=== PATIENT | male | born 1965 | race Caucasian/White ===

== ENCOUNTER 2025-08-20 13:21 | Outpatient (REF) | payer MEDICARE, MEDICAID, SELFPAY ==
[2025-08-20 16:09] LABS: Folate 10.7 ng/mL (> or = 4.0); Vitamin B12 347 pg/mL (200-900)
[2025-08-21 05:28] LABS: Lyme Abs Screen <0.90 index
[2025-08-21 07:58] LABS: Syphilis Screen Nonreactive (Nonreactive)
== END 2025-08-20 13:22 | disposition home or self-care (01) ==
LOC: HO.LAB 13:21
PROVIDERS: PCP Internal Medicine; Visit Provider Psychiatry & Neurology Neurology
DX: E11.42 Type 2 diabetes mellitus with diabetic polyneuropathy (principal); M15.9 Polyosteoarthritis, unspecified; M47.12 Other spondylosis with myelopathy, cervical region; Z01.84 Encounter for antibody response examination
CPT/HCPCS: 36415; 82607; 82746; 86617; 86618; 86780

== ENCOUNTER 2025-08-20 13:21 | Outpatient (AMB) | payer OTHER, MEDICAID, SELFPAY ==
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
--- OUTSIDE RECORDS SUMMARY | 2025-08-20 16:28 | XMS_ITS ---
[facility] Organization Unknown Care Team Organization Name Specialty Phone Email Start Date End Da te [facility] Austyn Masters [facility] 07/21/202307/02 [facility] Pa[facility] 01/19/2023 07/02/2024 [facility] Daly Madison [facility] 09/21/2022 07/02/2024
--- OUTSIDE RECORDS SUMMARY | 2025-08-20 16:28 | XMS_ITS | Encounter Summary ---
Author Organization [facility] Address [address] [place] [address] Care Team Providers Care [employer] Name Role Phone Jacques Guevara MD Primary Care Provider [phone] Encounter Details Date Type Department Care Team (Late st Contact Info) Description 08/14/2025 Telephone Adult Medicine [address] [phone] Jacques Guevara MD [address] [place] [phone] Social History Tobacco Use Types Packs/Day Years Used Date Smoking Tobacco: Former Cigarettes 0.3 20 0 11/14/1980 - 11/14/2000 Smokeless Tobacco: Never Alcohol Use Standard Drinks/Week Comments No 0 (1 standard drink = 0.6 oz pur e alcohol) Interpersonal Safety Answer Date Record ed Physical Abuse Unrecognized value 04/02/2025 Verbal Abuse Unrecognized value 04/02/2025 Sex and Gender Information Value Date Recorded Sex Assigned at Male 01/11/2025 2:17 PM EST Legal Sex Male 9:54 AM EST Gender Identity Male 01/11/2025 2:17 PM EST Sexual Orientation Straight 01/14/2025 9: 46 AM EST documented as of this encounter Progress Notes * Lesa Somers - 08/15/2025 11:41 AM EDT Richelle is calling from [employer] again. She states she has been sending a request for the patients last office notes since May. She Resent fax yesterday 08/14/25 around 11:30; States this is holding up Patient Care. Please advise. * Bibi Mcclendon - 08/14/2025 11:54 AM EDT Richelle is calling from [employer]. She states she has been sending a request for the patients lastoffice notes since May. Please advise. documented in this encounter Plan of Treatment Upcoming Encounters Date Type Department Care Team (Late st Contact Info) Description 09/04/2025 10:45 AM EDT Consult Orthopedic Surgery - [place] [id number] [phone] Raimundo Jimenez, SUZANNE [address] [address] 10/25/2025 9:40 AM EST Office Visit Endocrinology - [address] [phone] Deja Caro PA [address] [place] [address] 11/05/2025 11:45 AM EST Office Visit Adult Medicine [place] - [address] [phone] Jacques Guevara MD [address] [place] [address] documented as of this encounter Visit Diagnoses Not on filedocumented in this encounter Additional Health Concerns Assessment Noted Time PHQ-9 Depression Total Score: 0 07/24/20 11:00 AM EDT documented as of this encounter Care Teams [employer] Relationship Specialty Start Date End Date Jacques Guevara MD [address] [place] [address] PCP - General Internal Medicine 06/02/15 documented as of this encounter
--- OUTSIDE RECORDS SUMMARY | 2025-08-20 16:28 | XMS_ITS | Clinical Summary ---
Author Organization [address] Address [address] [place] [phone] Phone Care Team Providers Care Dope Firer Name Role Phone Jacques Guevara MD Primary Care Provider [phone] Allergies Active Allergy Reactions Criticality Noted Date Comments Penicillin V Potassium Rash 09/28/2005 Medications acetaminophen (TYLENOL) 500 mg tablet Take 1 tablet (500 mg total) by mouth if needed for headaches. Patient buys OTC Active losartan (COZAAR) 50 mg tablet TAKE 1 TABLET BY MOUTH EVERY DAY 30 tablet 5 11/28/19 25 Active metFORMIN XR (GLUCOPHAGE-X R) 500 mg 24 hr tabletIndicat ions:Type 2 diabetes mellitus with hyperglycemia , with long-term current use of insulin ([facility] V24, [facility] V28) TAKE 1 TABLET BY MOUTH THREE TIMES A DAY 270 tablet 1 04/19/20 25 Active sertraline (ZOLOFT) 25 mg tablet TAKE 1 TABLET BY MOUTH EVERY DAY 90 tablet 1 05/21/20 25 Active atorvastatin (LIPITOR) 20 mg tablet TAKE 1 TABLET BY MOUTH EVERY DAY 90 tablet 1 05/21/20 25 Active hydroCHLOROth iazide (HYDRODIURIL) 25 mg tablet TAKE 1 TABLET BY MOUTH EVERY DAY 90 tablet 1 05/21/20 25 Active Jardiance 25 mg tabletIndicat ions:Type 2 diabetes mellitus with hyperglycemia , with long-term current use of insulin ([facility] V24, [facility] V28) TAKE 1 TABLET BY MOUTH EVERY DAY 90 tablet 1 05/21/20 25 Active semaglutide (OZEMPIC) 1 mg/dose (4 mg/3 mL) injection penIndication s:Type 2 diabetes mellitus with hyperglycemia , without long-term current use of insulin ([facility] V24, [facility] V28) Inject 1 mg under the skin every 7 (seven) days. 3 mL 5 06/18/20 25 Active blood-glucose meter miscIndicatio ns:Type 2 diabetes mellitus with hyperglycemia , with long-term current use of insulin ([facility] V24, [facility] V28) Use daily or as directed for monitoring of diabetes. 1 each 07/24/20 25 Active glucose blood test stripIndicati ons:Type 2 diabetes mellitus with hyperglycemia , with long-term current use of insulin ([facility] V24, [facility] V28) Check blood glucose daily 100 strip 5 07/24/20 Active lancets lancetsIndica tions:Type 2 diabetes mellitus with hyperglycemia , with long-term current use of insulin ([facility] V24, [facility] V28) Check blood sugar 1-2 times a day or as directed. 200 each 6 07/24/20 25 Active blood sugar diagnostic (OneTouch Verio test strips) test strip USE TO TEST BLOOD SUGAR ONCE DAILY 100 strip 1 01/31/20 25 025 Discontinued lancets (OneTouch Delica Plus Lancet) 33 gauge USE TO TEST BLOOD SUGAR DAILY 100 each 3 03/26/20 25 025 Discontinued bisacodyL (DULCOLAX) 5 mg EC tablet Take 2 tablets by mouth right before beginning bowel prep. See instructions provided by the office 2 tablet 03/25/20 25 025 Discontinued(T herapy completed) blood sugar diagnostic (OneTouch Verio test strips) test strip USE TO TEST BLOOD SUGAR ONCE DAILY 100 strip 3 07/22/20 25 025 Discontinued Active Problems Problem Noted Date Diagnosed Date Class 1 obesity with serious comorbidity and body mass index (BMI) of 34.0 to 34.9 in adult 08/24/2024 Assessment & Plan (11/25/2024 11:00 PM EST): Diet Recommendation: Patient is to increase protein intake (120 g/day) to minimize muscle loss side effects related to GLP-1's. Patient is maintain a low carb diet to optimize blood sugar levels. Patient is counseled about low calorie diet (avoid sweet drinks/snacks, and replace red meat with chicken and fish and increase salad intake). I also recommend patient start daily Metamucil to minimize the constipation that is related to GLP-1's medication and also help with fiber intake and blood sugar control. Activity/Exercise Recommendation: Patient is to attempt exercise daily or at least 3 times a week for 30 min. If able to set aside 2 days of of the week for strength exercise to minimize the side effects of muscle loss related to GLP-1's. Orders: Basic metabolic panel; Future Type 2 diabetes mellitus wit h hyperglycemia, with long-term current use of insulin ([facility] V24, [facility] V28) 08/24/2024 Abnormal chest x-ray 03/02/2023 Acne rosacea 11/10/2020 Chronic kidney disease, stag e 3, mod decreased GFR ([facility] V24, [facility] V28) 11/02/2016 Assessment & Plan (11/25/2024 11:00 PM EST): BMP order to evaluated renal function Orders: Basic metabolic panel; Future Plantar fasciitis 10/28/2015 Bilateral low back pain without sciatica 015 Diabetes mellitus type 2, co ntrolled, without complications ([facility] V24, [facility] V28) 04/29/2015 Assessment & Plan (11/25/2024 11:00 PM EST): Patient is to continue Ozempic 0.25 mg weekly, metformin 500 mg TID and Jardiance 25 mg daily. Checking Your Blood Sugars: Please check your sugars at the following times of day: before breakfast. Write your fingerstick blood sugars down on a log sheet or record book. Bring them to your appointment Educated patient on pre and post prandial blood sugar goals of <120 and <170 respectively, as well as an A1c goal of <7% and goal FBG of 90-130. Educated patient on complications associated with uncontrolled diabetes. These include but are not limited to an increased risk of cardiovascular disease, retinopathy, neuropathy, renal disease, increased risk of infections with open wounds and amputations. Diet Recommendation: Patient is to increase protein intake (120 g/day) to minimize muscle loss side effects related to GLP-1's. Patient is maintain a low carb diet to optimize blood sugar levels. Patient is counseled about low calorie diet (avoid sweet drinks/snacks, and replace red meat with chicken and fish and increase salad intake). I also recommend patient start daily Metamucil to minimize the constipation that is related to GLP-1's medication and also help with fiber intake and blood sugar control. Activity/Exercise Recommendation: Patient is to attempt exercise daily or at least 3 times a week for 30 min. If able to set aside 2 days of of the week for strength exercise to minimize the side effects of muscle loss related to GLP-1's. Patient is to A1c in 6 months When to Call your Healthcare Provider If your blood sugar falls below 70 and you do not know why or you become unconscious If you are sick and unable to take liquids because or nausea or vomiting If you have a fever over 101 If your blood sugar is 300 or higher on greater than 3 separate occasions during the same week If you are just unsure what to do Your Action Plan Check blood glucose as directed and write down all results. Review blood pressure medications Make appointment to see your eye doctor Check feet for sores every day Continue to work on weight loss with a goal of losing 2-4 pounds per month Avoid walking in bare or stocking feet due to the numbness in your feet Increase physical activity difficulty getting to your appointments or difficulty understanding your care plan Please get your pneumonia shot Please get your yearly flu shot Orders: Basic metabolic panel; Future Biceps tendonitis 04/23/2015 Abnormal finding on MRI of brain 09/20/2011 Anxiety 08/23/2011 Insomnia 08/23/2011 Generalized headaches 08/23/2011 Degenerative arthritis of cervical spine 010 Hypertension 09/28/2005 Assessment & Plan (11/25/2024 11:00 PM EST): The goal of therapy is for systolic BP to be <140, diastolic BP <90. Valentín is not control. Patient is to Continue Losartan 50 mg and Hydrochlorothiazide 25 mg daily. Review medication, side effects ans potential future medication changes. Patient is advised to check BP at home and maintain a BP log. He is to call the office if blood pressure more than 140/90, more than a couple of times. Patient is recommended lifestyle changes including 2 g sodium/Dash Diet and regular exercise as tolerated. Orders: Basic metabolic panel; Future Hyperlipidemia 09/28/2005 Assessment & Plan (11/25/2024 11:00 PM EST): Patient is to continue statin Orders: Basic metabolic panel; Future Encounters Date Type Department Care Team Description 08/20/2025 Telephone Adult Medicine [address] [phone] [place] 08/14/2025 Telephone Adult Medicine [address] [phone] Jacques Guevara MD 07/24/2025 11:00 AM EDT Office Visit [address] [phone] Ashley Quick NP Type 2 diabetes mellitus with hyperglycemia, with long-term current use of insulin ([facility] V24, [facility] V28) (Primary Dx); Primary hypertension; Mixed hyperlipidemia; Gastroesophageal reflux disease without esophagitis; Encounter for diabetic foot exam ([facility] V24, [facility] V28) 06/18/2025 9:45 AM EDT Office Visit [address] [phone] Monserrat Love PA Type 2 diabetes mellitus with hyperglycemia, without long-term current use of insulin ([facility] V24, [facility] V28) (Primary Dx); Stage 3a chronic kidney disease ([facility] V24, [facility] V28); Primary hypertension; Mixed hyperlipidemia 05/23/2025 11:00 AM EDT Office Visit Adult [address] [phone] Jacques Guevara MD Poorly controlled diabetes mellitus ([facility] V24, [facility] V28) (Primary Dx); Class 1 obesity with serious comorbidity and body mass index (BMI) of 34.0 to 34.9 in adult, unspecified obesity type; Loss of balance; Abnormal finding on MRI of brain; Mixed hyperlipidemia; Primary hypertension from Last 3 Months Immunizations Immunization Administration Dates Next Due Influenza Quadravalent, MDCK , 0.5ml, preservative free (Flucelvax) 6mo and older 11/10/2020,09/19/2019 Pneumococcal polysaccharide 23 valent (Pneumovax 23) 2yo and older 10/28/2015 Td Tetanus diptheria (Tdvax) 7yo and older 07/15 Tdap Tetanus diptheria acell ular pertussis (Boostrix; Adacel) 7yo and older 08/07/2014 Surgical History Surgery Date Site/Laterality Comments HAND SURGERY PROCEDURE: HISTORICAL HAND SURGERY FOOT SURGERY PROCEDURE: HISTORICAL FOOT SURGERY Medical History Medical History Date Comments Anxiety DX:Anxiety Generalized headaches DX:General ized headaches HTN (hypertension) DX:HTN (hyper tension) Insomnia DX:Insomnia Cervical disc disorder DX:Cervic al disc disorder Diabetes mellitus type 2, co ntrolled, without complications (CMS/HCC V24, CMS/HCC V28) 04/29/2015 DX:Diabetes mellitus type 2, controlled, without complications ([facility]) Family History Medical History Relation Name Comments No Known Problems Brother Heart attack Father dec at 44 [place] Heart attack Maternal Grandfather heavy s moker Other: cancer - not sure what kind Maternal Grandmothe r 50s Other: Other Mother heart valve pro blem 50s No Known Problems Paternal Grandmother Relation Name Status Comments Brother Alive Father (Age 44) sudden vlad th Maternal Grandfather Maternal Grandmother Mother Alive htn Paternal Grandmother Social History Tobacco Use Types Packs/Day Years Used Date Smoking Tobacco: Former Cigarettes 0.3 20 0 11/14/1980 - 11/14/2000 Smokeless Tobacco: Never Tobacco Cessation:Counseling Given: Not Answered Alcohol Use Standard Drinks/Week Comments No 0 [...] Orientation Straight 01/14/2025 9: 46 AM EST Obstetrics History Last Filed Vital Signs Vital Sign Reading Time Taken Comments Blood Pressure 122/74 07/24/2025 11:36 AM EDT Pulse 96 07/24/2025 10:45 AM EDT Temperature 36.3 C (97.4 F) 07/24/2025 10:45 AM EDT Respiratory Rate 18 07/24/2025 10:45 AM EDT Oxygen Saturation 97% 07/24/2025 10:45 AM EDT Inhaled Oxygen Concentration - - Weight 98.4 kg (217 lb) 07/24/2025 10:45 AM EDT Height 182.9 cm (6') 07/24/2025 10:45 AM EDT Body Mass Index 29.43 07/24/2025 10:45 AM EDT Plan of Treatment Upcoming Encounters Date Type Department Care Team (Late st Contact Info) Description 09/04/2025 10:45 AM EDT Consult Orthopedic Surgery - [place] [id number] [phone] Raimundo Jimenez, DPAlok [address] [address] 10/25/2025 9:40 AM EST Office Visit Endocrinology [address] [phone] Deja Caro PA [address] [place] [address] 11/05/2025 11:45 AM EST Office Visit Adult Medicine [address] [phone] Jacques Guevara MD [address] [place] [address] Health Maintenance Due Date Last Done Comments Medicare Annual Wellness Visit 10/23/2022 Social Influencers of Health Screening 10/23/2022 Diabetes: Blood Sugar Control Test (HGBA1C) 01/16/2026 07/19/2025, 05/13/2025, 11/13/2024, Additional history exists Diabetes: Annual GFR (Glomerular Filtration Rate) 05/13/2026 05/13/2025, 11/13/2024, 07/27/2024, Additional history exists Hypertension/CHF/CAD Annual BMP Blood Test 05/13/2026 05/13/2025, 11/13/2024, 07/27/2024, Additional history exists Diabetes: Annual Retina Eye Exam 05/30/2026 05/30/2025, 05/28/2024 Diabetes: Annual Urine Albumin-Creatinine Ratio (uACR) 07/19/2026 07/19/2025, 05/03/2024 Diabetes: Annual Foot Exam 07/24/202607/24, 07/24/2025, 07/24/2025, Additional history exists Cholesterol Screening (Lipid Panel) 05/13/2030 05/13/2025, 05/02/2024, 05/02/2024 RSV Immunization Adult Patients (1 - 1-dose 75+ series) 2041 DTaP,Tdap,and Td Vaccines Discontinued 08/07/2014, 11/2004 Hepatitis C Screening Completed 08/11/2014 Pneumococcal Vaccine: 50+ Years Discontinued 10/28/2015 Influenza Vaccine Discontinued 11/10/2020, 09/19/2019 Colorectal Cancer Screening: Colonoscopy Discontinued 04/02/2025 Depression Screening Completed 07/24/2025, 08/02/20 COVID-19 Vaccine Discontinued Colorectal Cancer Screening: Stool Based Tests (FOBT/FIT) Discontinued HIB Vaccines Aged Out No longer eligi ble based on patient's age to complete this topic HIV Screening Discontinued HPV Vaccines Aged Out No longer eligi ble based on patient's age to complete this topic Hepatitis A Vaccines Aged Out No long er eligible based on patient's age to complete this topic Hepatitis B Vaccines Discontinued IPV Vaccines Aged Out No longer eligi ble based on patient's age to complete this topic MMR Vaccines Aged Out No longer eligi ble based on patient's age to complete this topic Meningococcal ACWY Vaccine Aged Out N o longer eligible based on patient's age to complete this topic Meningococcal B Vaccine Aged Out No l onger eligible based on patient's age to complete this topic RSV Immunization Patients Under 20 months Aged Out No longer eligible based on patient's age to complete this topic Varicella Vaccines Aged Out No longer eligible based on patient's age to complete this topic Zoster Vaccines Discontinued Procedures Procedure Name Priority Date/Time Associated Diagnosis Comments POC GLUCOSE Routine 07/24/2025 11:02 AM EDT Type 2 diabetes mellitus with hyperglycemia, with long-term current use of insulin ([facility] V24, [facility] V28) HEMOGLOBIN A1C Routine 07/19/2025 8:44 AM EDT Poorly controlled diabetes mellitus ([facility] V24, [facility] V28) MICROALBUMIN CREATININE URINE RATIO Routine 07/19/2025 8:44 AM EDT Controlled type 2 diabetes mellitus without complication, without long-term current use of insulin ([facility] V24, [facility] V28) Type 2 diabetes mellitus with hyperglycemia, with long-term current use of insulin ([facility] V24, [facility] V28) POC GLUCOSE Routine 06/18/2025 10:00 AM EDT Type 2 diabetes mellitus with hyperglycemia, without long-term current use of insulin ([facility] V24, [facility] V28) BASIC METABOLIC PANEL Routine 05/13/2025 9:08 AM EDT Controlled type 2 diabetes mellitus without complication, without long-term current use of insulin ([facility] V24, [facility] V28) Primary hypertension Stage 3a chronic kidney disease ([facility] V24, [facility] V28) Class 1 obesity with serious comorbidity and body mass index (BMI) of 34.0 to 34.9 in adult, unspecified obesity type Mixed hyperlipidemia Encounter for screening for cardiovascular disorders LIPID PANEL WITH REFLEX TO DIRECT LDL Routine 05/13/2025 9:08 AM EDT Encounter for screening for cardiovascular disorders COLONOSCOPY Routine 04/02/2025 11:18 AM EDT Encounter for screening for malignant neoplasm of colon DEPRESSION SCREENING Routine 08/02/2024 DIABETES EYE EXAM Routine 05/28/2024 HEPATITIS C SCREENING Routine 08/11/2014 from Last 3 Months or Most Recently Relevant to Health Maintenance Results * POC glucose manually resulted (07/24/2025 11:02 AM EDT) Only the most recent of2 resultswithin the time period is included. Glucose POC 179 mg/dL Blood Capillary blood specimen / Unknown 07/24/2025 11:02 AM EDT Ashley Quick NP POINT OF CARE TEST ENTER/DAVID T ORDERABLES Final Result * Microalbumin creatinine urine ratio (07/19/2025 8:44 AM EDT) Creatinine, Urine 106.0 mg/dL LAB CHEMISTRY METHOD 07/19/2025 9:13 PM EDT [facility] Microalb, Ur 8.7 0.0 - 29.0 mg/L LAB CHEMISTRY METHOD 07/19/2025 9:13 PM EDT [facility] Microalb/Creat Ratio 8 <30 mg/g creat LAB CHEMISTRY METHOD 07/19/2025 9:13 PM EDT [facility] Urine Urine specimen obtained by clean catch procedure / Unknown Non-blood Collection / Unknown 07/19/2025 8:44 AM EDT 07/19/2025 8:44 AM EDT Jacques Guevara MD LAB URINE ORDERABLES Final Resul t [facility] [address] [place] [address], * (ABNORMAL) Hemoglobin A1c (07/19/2025 8:44 AM EDT) Hemoglobin A1C 8.4(H) <6.5 % LAB CHEMISTRY METHOD 07/19/2025 12:24 PM EDT [facility] Mean Bld Glu Estim. 194 mg/dL LAB CHEMISTRY METHOD 07/19/2025 12:24 PM EDT [facility] Blood Venous blood specimen / Unknown Venipuncture / Unknown 07/19/2025 8:44 AM EDT 07/19/2025 8:44 AM EDT us Jacques Guevara MD LAB BLOOD ORDERABLES Final Resul t [facility] [address] [place] [address], [place] [phone] * (ABNORMAL) Lipid panel with reflex to direct LDL (05/13/2025 9:08 AM EDT) [facility] Cholesterol 133 0 - 200 mg/dL LAB CHEMISTRY METHOD 05/13/2025 1:38 PM EDT [facility] Triglycerides 153(H) 0 - 150 mg/dL LAB CHEMISTRY METHOD 05/13/2025 1:38 PM EDT [facility] HDL 32(L) >=40 mg/dL LAB CHEMISTRY METHOD 05/13/2025 1:38 PM EDT [facility] LDL Calculated 70 0 - 100 mg/dL LAB CHEMISTRY METHOD 05/13/2025 1:38 PM EDT [facility] VLDL Cholesterol Nish 30.6 mg/dL LAB CHEMISTRY METHOD 05/13/2025 1:38 PM EDT [facility] Non HDL Chol. (LDL+VLDL) 101 <145 mg/dL LAB CHEMISTRY METHOD 05/13/2025 1:38 PM EDT [facility] Chol/HDL Ratio 4.2 0.0 - 4.4 LAB CHEMISTRY METHOD 05/13/2025 1:38 PM EDT [facility] Blood Venous blood specimen / Unknown Venipuncture / Unknown 05/13/2025 9:08 AM EDT 05/13/2025 9:08 AM EDT us Ashley Quick NP LAB BLOOD ORDERABLES Final R esult [facility] [address] [place] [address], * (ABNORMAL) Basic metabolic panel (05/13/2025 9:08 AM EDT) Sodium 138 133 - 145 mmol/L LAB CHEMISTRY METHOD 05/13/2025 1:38 PM [facility] Potassium 3.7 3.5 - 5.5 mmol/L LAB CHEMISTRY METHOD 05/13/2025 1:38 PM [facility] Chloride 102 96 - 110 mmol/L LAB CHEMISTRY METHOD 05/13/2025 1:38 PM [facility] CO2 27 21 - 32 mmol/L LAB CHEMISTRY METHOD 05/13/2025 1:38 PM [facility] Anion Gap 9 3 - 11 LAB CHEMISTRY METHOD 05/13/2025 1:38 PM [facility] Glucose 192(H) 70 - 100 mg/dL LAB CHEMISTRY METHOD 05/13/2025 1:38 PM [facility] BUN 18 5 - 25 mg/dL LAB CHEMISTRY METHOD 05/13/2025 1:38 PM [facility] Creatinine 1.16 0.70 - 1.30 mg/dL LAB CHEMISTRY METHOD 05/13/2025 1:38 PM [facility] eGFR 73 >=60 mL/min/1. 73m2 LAB CHEMISTRY METHOD 05/13/2025 1:38 PM [facility] Comment:Calculation based on the Chronic Kidney Disease Epidemiology Collaboration (CKD-EPI) equation refit without adjustment for race. BUN/Creatinine Ratio 15.5 LAB CHEMISTRY METHOD 05/13/2025 1:38 PM [facility] Calcium 9.3 8.5 - 10.5 mg/dL LAB CHEMISTRY METHOD 05/13/2025 1:38 PM [facility] Blood Venous blood specimen / Unknown Venipuncture / Unknown 05/13/2025 9:08 AM EDT 05/13/2025 9:08 AM EDT us Ashley uQick [employer] LAB BLOOD ORDERABLES Final R esult [facility] [address] [place] [address], [place] [phone] * COLONOSCOPY Anesthesia - MAC; [facility] ENDOSCOPY (04/02/2025 11:18 AM EDT) Anatomical Region Laterality Modality Other 04/02/2025 11:0 2 AM EDT Impressions 04/02/2025 11:21 AM EDT - Preparation of the colon was fair. - Stool in the entire examined colon. - No specimens collected. Recommendation: - Repeat colonoscopy in 1 year for screening purposes and because the bowel preparation was suboptimal. Narrative 04/02/2025 11:21 AM EDT [facility] GI Patient Name: Valentín Vilchis Procedure Date: 04/02/2025 11:02 AM Date of : 1965 Age: 60 Room: ROOM 14 Gender: Male Note Status: Finalized Attending MD: Jonny Dick MD, Procedure Date No Time: 04/02/2025 Procedure: Colonoscopy Indications: Screening for colorectal malignant neoplasm Providers: Jonny Dick MD Referring MD: Jonny Dick MD Medicines: Propofol per Anesthesia Complications: No immediate complications. Estimated Blood Loss: Estimated blood loss: none. Procedure: Pre-Anesthesia Assessment: - After reviewing the risks and benefits, the patient was deemed in satisfactory condition to undergo the procedure. - ASA Grade Assessment: II - A patient with mild systemic disease. After I obtained informed consent, the scope was passed under direct vision. Throughout the procedure, the patient's blood pressure, pulse, and oxygen saturations were monitored continuously.The Colonoscope was introduced through the anus and advanced to the cecum, identified by appendiceal orifice and ileocecal valve. The colonoscopy was performed without difficulty. The patient tolerated the procedure well. The quality of the bowel preparation was fair. Findings: The perianal and digital rectal examinations were normal. A moderate amount of semi-liquid stool was found in the entire colon, interfering with visualization. Procedure Code(s): --- Professional --- G0121, Colorectal cancer screening; colonoscopy on individual not meeting criteria for high risk Diagnosis Code(s): --- Professional --- Z12.11, Encounter for screening for malignant neoplasm of colon CPT copyright 2020 [employer]. All rights reserved. The codes documented in this report are preliminary and upon site manager review may be revised to meet current compliance requirements. Jonny Dick MD 04/02/2025 11:21:05 AM This report has been signed electronically.Jonny Dick MD Number of Addenda: 0 Note Initiated On: 04/02/2025 11:02 AM Scope In: Scope Out: Endoscopy Department at [facility] - [address] [place] [id number] Procedure Note Jonny Dick MD - 04/02/2025 [facility] GI Patient Name: Valentín Vilchis Procedure Date: 04/02/2025 11:02 AM Date of : 1965 Age: 60 Room: ROOM 14 Gender: Male Note Status: Finalized Attending MD: Jonny Dick MD, Procedure Date No Time: 04/02/2025 Procedure: Colonoscopy Indications: Screening for colorectal malignant neoplasm Providers: Jonny Dick MD Referring MD: Jonny Dick MD Medicines: Propofol per Anesthesia Complications: No immediate complications. Estimated Blood Loss: Estimated blood loss: none. Procedure: Pre-Anesthesia Assessment: - After reviewing the risks and benefits, thepatient was deemed in satisfactory condition to undergo the procedure. - ASA Grade Assessment: II - A patient with mild systemic disease. After I obtained informed consent, the scope was passed under direct vision. Throughout theprocedure, the patient's blood pressure, pulse, and oxygen saturations were monitored continuously.The Colonoscope was introduced through the anus and advanced to the cecum, identified by appendiceal orifice and ileocecal valve. The colonoscopy was performed without difficulty. The patient tolerated the procedure well. The quality of the bowel preparation was fair. Findings: The perianal and digital rectal examinations were normal. A moderate amount of semi-liquid stool was found in the entire colon, interfering with visualization. Procedure Code(s): --- Professional --- G0121, Colorectal cancer screening; colonoscopy on individual not meeting criteria for high risk Diagnosis Code(s): --- Professional --- Z12.11, Encounter for screening for malignantneoplasm of colon CPT copyright 2020 [employer]. All rights reserved. The codes documented in this report are preliminary and upon site manager reviewmay be revised to meet current compliance requirements. Jonny Dick MD 04/02/2025 11:21:05 AM This report has been signed electronically.Jonny Dick MD Number of Addenda: 0 Note Initiated On: 04/02/2025 11:02 AM Scope In: Scope Out: Endoscopy Department at [address] [phone] IMPRESSION: - Preparation of the colon was fair. - Stool in the entire examined colon. - No specimens collected. Recommendation: - Repeat colonoscopy in 1 year for screeningpurposes and because the bowel preparation was suboptimal. Jonny Dick MD GI~PROCEDURE ORDERABLES Fin al Result * Depression Screening (08/02/2024) [facility] Depression Screening abstracted [facility] Provider HEALTH MAINTENANCE Edited Result - Final * Diabetes Eye Exam (05/28/2024) [facility] Diabetes: Annual Retina Eye Exam abstracted Historical Provider HEALTH MAINTENANCE Final Result * Hepatitis C Screening (08/11/2014) [facility] Hepatitis C Screening abstracted Historical Provider HEALTH MAINTENANCE Final Result from Last 3 Months or Most Recently Relevant to Health Maintenance Insurance [employer] MEDICARE ADVANTAGE MEDICA[place] MEDICARE Care Teams Dope Firer Relationship Specialty Start Date End Date Jacques Guevara MD [address] [place] [address] PCP - General Internal Medicine 06/02/15
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
== END 2025-08-20 14:21 | disposition home or self-care (01) ==
LOC: HO.HSM 13:25
PROVIDERS: PCP Internal Medicine; Visit Provider Psychiatry & Neurology Neurology
DX: E11.42 Type 2 diabetes mellitus with diabetic polyneuropathy (principal); R26.89 Other abnormalities of gait and mobility; M15.9 Polyosteoarthritis, unspecified; M47.12 Other spondylosis with myelopathy, cervical region
CPT/HCPCS: 99204

== ENCOUNTER 2025-09-04 13:55 | Outpatient (REF) | payer MEDICARE, MEDICAID, SELFPAY ==
--- OUTSIDE RECORDS SUMMARY | 2025-09-04 10:45 | XMS_ITS | Encounter Summary ---
Author Organization [facility] Address [address] [place] [address] Care Team Providers Care Flooring Machine Feeder Name Role Phone Jacques Guevara MD Primary Care Provider [phone] Reason for Visit * Reason Comments DM Foot Care consultant electronics * Consultation (Urgent) - Authorized Specialty Diagnoses / Procedures Referred By Contact Referred To Contact Podiatry / Orthopaedic Surgery Diagnoses Type 2 diabetes mellitus with hyperglycemia, with long-term current use of insulin (CMS/HCC V24, CMS/[facility] V28) Stage 3a chronic kidney disease (CMS/HCC V24, CMS/[facility] V28) Ashley Quick, CERTIFIED PHLEBOTOMIST [address] [place] [address] Phone: tel: fax: Orthopedic Surgery [facility] [address] [address] Phone: tel: fax: Referral ID Status Reason Start Date Expiration Date Visits Requested Visits Authorized [id number] Authorized Specialty Services Required 07/24/2025 07/24/2026 1 1 Encounter Details Date Type Department Care Team (Late st Contact Info) Description 09/04/2025 10:45 AM EDT Consult Orthopedic Surgery [place] [address] [address] Raimundo Jimenez, SUZANNE [address] [address] Controlled type 2 diabetes with neuropathy (CMS/[facility] V24, CMS/[facility] V28) (Primary Dx); Metatarsalgia of right foot; Arthritis of both feet; Dermatophytosis, nail; Midfoot ulceration, right, with fat layer exposed ([facility] V24, [facility] V28) Social History Tobacco Use Types Packs/Day Years [...] as of this encounter Progress Notes * Raimundo Jimenez DPM - 09/04/2025 10:45 AM EDT Referring MD: Ashley Quick NP Last PCP visit: 07/24/2025 IDENTIFIER: White is a 60 y.o. year old male who presents for consultation. CC: Bilateral foot pain HPI: Patient presents to office today for initial diabetic foot evaluation as recommended by their primary care physician. Patient states that they have been diabetic for the past few years and has extensive tingling numbness of the feet Patient notes that he recently started having an ulceration and some metatarsal 1 position of the right foot Patient would like to inquire about their pedal hygiene, as their toenails have become elongated and painful. Patient is not using antifungals at this time. Patient is wearing good supportive shoes at this time. Patient reports mild calluses that are becoming bothersome. Patient with minimal other pedal complaints at this time. Patient's FBS this AM was 175 Recent A1C is %. 8.4 ROS: GENERAL: Pt denies nausea, fever, vomiting, chills, or shortness of breath. Pt in NAD. CARDIOLOGY: pt denies chest pain, palpitations LUNGS: pt denies shortness of breath MUSCULOSKELETAL: See HPI, otherwise no joint pain or swelling, back pain, or muscle pain. SKIN: see HPI, otherwise no lesions, rash or itching NEURO: No persistent headache, weakness or numbness The remainder of the review of systems is noncontributory PAST MEDICAL HISTORY: Problem List[1] SOCIAL HISTORY: Social History Tobacco Use Smoking status: Former Current packs/day: 0.00 Average packs/day: 0.3 packs/day for 20.0 years (5.0 ttl pk-yrs) Types: Cigarettes Start date: 11/14/1980 Quit date: 11/14/2000 Years since quittin.8 Smokeless tobacco: Never Substance Use Topics Alcohol use: No ACTIVE MEDICATIONS: Medications Taking[2] ALLERGIES: Penicillin v potassium PHYSICAL EXAM: There were no vitals taken for this visit. PODIATRIC EXAMINATION: GENERAL: Patient appears well nourished, with NAD. VASCULAR: Dorsalis pedis pulses are 1/4 bilaterally and Posterior tibial pulses are 0/4 bilaterally. Capillary filling time within normal limits the digits. No pallor on elevation or rubor on dependency. Positive hair growth. Many varicosities. +1 pitting edema bilateral legs. Denies rest pain or claudication pain. NEUROLOGICAL: Sharp/dull sensation intact, protective sensation diminished on [place]. Peripheral neuropathy throughout the feet bilaterally ORTHOPEDIC: Good muscle strength 5/5 of all flexors and extensors. Dorsi flexion of ankle ,10 degrees, plantar flexion WNL. No muscle atrophy. Arthritic changes to midfoot bilaterally. Curvature of the digits 2-5. Increased arch height bilaterally DERMATOLOGICAL:.Ulceration is 3 mm in diameter with regular hyperkeratotic rim and subcutaneous fibrogranular base with serous drainage to the submetatarsal 1 position of the right foot. No abscess or streaking cellulitis BIOMECHANICS: STJ ROM wnl, MTJ ROM wnl, 1st MPJ ROM wnl. IMPRESSION: 1. Controlled type 2 diabetes with neuropathy (CMS/HCC V24, CMS/HCC V28) 2. Metatarsalgia of right foot 3. Arthritis of both feet 4. Dermatophytosis, nail 5. Midfoot ulceration, right, with fat layer exposed (CMS/HCC V24, CMS/HCC V28) PLAN: Pt was seen and examined, history reviewed. Patient educated on the importance of good pedal hygiene and tight blood glucose control. Patient encouraged to maintain a healthy lifestyle with a well-balanced diet. Patient should never go barefoot and wear supportive shoe gear. Patient should aim for A1c less than 7% every month. Continue with regular appointments with PMD or trade show specialist for tight medical management Patient with symptoms of arthritic changes in the pedal joints. Patient showed good understanding of etiology of arthritis. Patient is aware that conservative options include padding, over the counter products, orthotics, and shoes. Patient aware that they are other treatments available such as oral anti- inflammatories, injections, and steroid dose packs. Patient understands that these measures are conservative measures to help handle the osteoarthritic flares. Patient was educated that due to his arch height he is having a pressure sore to the plantar aspectof the submetatarsal 1 position. Patient required debridement as described below and was dressed with an offloading pad and DSD. Patient instructed to change his dressing daily. Patient will return in 1 week for site check Open wound selective excisional debridement of devitalized soft tissue, fibrin, epidermis, dermis, thru skin and subcutaneous tissue, first 20 sq cm or less, using sterile sharp dissection #15 scalpel blade of the right foot wound. Pt. deferred anesthesia. . Devitalized tissue was not sent to pathology. Nail debridement performed to nails 1-5 bilateral as nails were described to be causing pain and difficulty for walking while in shoegear at their previous length. They were debrided in thickness andlength, with no incident. Clinical evidence of mycosis is documented which required active treatment. Patient expressed immediate relief. Patient is to RTC in 9 weeks Raimundo Jimenez DPM [1] Patient Active Problem List Diagnosis Hypertension Hyperlipidemia Degenerative arthritis of cervical spine Anxiety Insomnia Generalized headaches Abnormal finding on MRI of brain Biceps tendonitis Diabetes mellitus type 2, controlled, without complications (CMS/HCC V24, CMS/HCC V28) Plantar fasciitis Bilateral low back pain without sciatica Chronic kidney disease, stage 3, mod decreased GFR (CMS/HCC V24, CMS/HCC V28) Acne rosacea Abnormal chest x-ray Class 1 obesity with serious comorbidity and body mass index (BMI) of 34.0 to 34.9 in adult Type 2 diabetes mellitus with hyperglycemia, with long-term current use of insulin (CMS/HCC V24, CMS/HCC V28) [2] No outpatient medications have been marked as taking for the 09/04/25 encounter (Consult) with Juan Diego Jimenez DPM. documented in this encounter Plan of Treatment Upcoming Encounters Date Type Department Care Team (Late st Contact Info) Description 09/18/2025 10:30 AM EST Consult Orthopedic Surgery - [place] [address] [address] Raimundo Jimenez DPM [address] [address] 10/25/2025 9:40 AM EST Office Visit Endocrinology [address] [phone] Deja Caro PA [address] [place] [address] 11/05/2025 11:45 AM EST Office Visit [facility] [place] - [address] [phone] Jacques Guevara MD [address] [place] [address] documented as of this encounter Visit Diagnoses Diagnosis Controlled type 2 diabetes with neuropathy (CMS/HCC V24, CMS/HCC V28)- Primary Type II or unspecified type diabetes mellitus with neurological manifestations, not stated as uncontrolled Metatarsalgia of right foot Arthritis of both feet Dermatophytosis, nail Dermatophytosis of nail Midfoot ulceration, right, with fat layer exposed (CMS/HCC V24, CMS/HCC V28) documented in this encounter Orders Outpatient Referral Count Last Ordered Date Fir st Ordered Date AMB REFERRAL TO PODIATRY 1 09/04/2025 documented in this encounter Additional Health Concerns Assessment Noted Time PHQ-9 Depression Total Score: 0 07/24/20 11:00 AM EDT documented as of this encounter Care Teams Flooring Machine Feeder Relationship Specialty Start Date End Date Jacques Guevara MD [address] [place] [id number] PCP - General Internal Medicine 06/02/15 documented as of this encounter
--- NOTE | 2025-09-04 14:02 | EMG_ITS ---
Chief complaint:?E11.42 Type 2 diabetes mellitus with diabetic polyneuropathy Reason for referral: Diabetic neuropathy Referred by:?Dr Washington Procedure done: Bilateral lower extremities Bilateral peroneal and tibial motor studies were performed with F responses. Tibial H reflexes were obtained. Bilateral superficial peroneal and sural sensory studies were performed an EMG needle examination was performed. Sensory responses were absent. Motor distal latencies were mildly delayed with moderate somewhat patchy loss of amplitude and mildly slow conduction velocities. F responses were delayed or absent. Impression: Moderate to severe sensory more than motor, somewhat patchy, peripheral neuropathy [place] [id number] 2 extremities [facility]
--- OUTSIDE RECORDS SUMMARY | 2025-09-04 20:02 | XMS_ITS | Clinical Summary ---
Author Organization [address] Address [address] [place] [phone] Phone Care Team Providers Care Inside Meter Tester Name Role Phone Jacques Guevara MD Primary Care Provider [phone] Allergies Active Allergy Reactions Criticality Noted Date Comments Penicillin V Potassium Rash 09/28/2005 Medications acetaminophen (TYLENOL) 500 mg tablet Take 1 tablet (500 mg total) by mouth if needed for headaches. Patient buys OTC Active losartan (COZAAR) 50 mg tablet TAKE 1 TABLET BY MOUTH EVERY DAY 30 tablet 5 5 Active metFORMIN XR (GLUCOPHAGE-XR) 500 mg 24 hr tabletIndicatio ns:Type 2 diabetes mellitus with hyperglycemia, with long-term current use of insulin ([facility] V24, [facility] V28) TAKE 1 TABLET BY MOUTH THREE TIMES A DAY 270 tablet 1 5 Active sertraline (ZOLOFT) 25 mg tablet TAKE 1 TABLET BY MOUTH EVERY DAY 90 tablet 1 5 Active atorvastatin (LIPITOR) 20 mg tablet TAKE 1 TABLET BY MOUTH EVERY DAY 90 tablet 1 5 Active hydroCHLOROthia zide (HYDRODIURIL) 25 mg tablet TAKE 1 TABLET BY MOUTH EVERY DAY 90 tablet 1 5 Active Jardiance 25 mg tabletIndicatio ns:Type 2 diabetes mellitus with hyperglycemia, with long-term current use of insulin ([facility] V24, [facility] V28) TAKE 1 TABLET BY MOUTH EVERY DAY 90 tablet 1 5 Active semaglutide (OZEMPIC) 1 mg/dose (4 mg/3 mL) injection penIndications: Type 2 diabetes mellitus with hyperglycemia, without long-term current use of insulin ([facility] V24, [facility] V28) Inject 1 mg under the skin every 7 (seven) days. 3 mL 5 5 Active blood-glucose meter miscIndications :Type 2 diabetes mellitus with hyperglycemia, with long-term current use of insulin ([facility] V24, [facility] V28) Use daily or as directed for monitoring of diabetes. 1 each 5 Active glucose blood test stripIndication s:Type 2 diabetes mellitus with hyperglycemia, with long-term current use of insulin ([facility] V24, [facility] V28) Check blood glucose daily 100 strip 5 5 Active lancets lancetsIndicati ons:Type 2 diabetes mellitus with hyperglycemia, with long-term current use of insulin ([facility] V24, [facility] V28) Check blood sugar 1-2 times a day or as directed. 200 each 6 5 Active Active Problems Problem Noted Date Diagnosed Date [...] hyperglycemia, with long-term current use of insulin ([facility] V24, [facility] V28) 08/24/2024 Abnormal chest x-ray 03/02/2023 Acne rosacea 11/10/2020 Chronic kidney disease, stag e 3, mod decreased GFR ([facility] V24, [facility] V28) 11/02/2016 Assessment & Plan (11/25/2024 11:00 PM EST): BMP order to evaluated renal function Orders: Basic metabolic panel; Future Plantar fasciitis 10/28/2015 Bilateral low back pain without sciatica 015 Diabetes mellitus type 2, co ntrolled, without complications ([facility] V24, [facility] V28) 04/29/2015 Assessment & Plan (11/25/2024 11:00 [...] Encounters Date Type Department Care Team Description 09/04/2025 10:45 AM EDT Consult Orthopedic Surgery - [place] [address] [place] [phone] Raimundo Jimenez, SUZANNE Controlled type 2 diabetes with neuropathy (CMS/HCC V24, CMS/HCC V28) (Primary Dx); Metatarsalgia of right foot; Arthritis of both feet; Dermatophytosis, nail; Midfoot ulceration, right, with fat layer exposed ([facility] V24, [facility] V28) 08/20/2025 Telephone Adult Medicine [address] [phone] Liseth [place], [place] 08/14/2025 Telephone Adult Medicine [address] [phone] Jacques Guevara MD 07/24/2025 11:00 AM EDT Office Visit Adult Medicine [address] [phone] Ashley Quick NP Type 2 diabetes mellitus with hyperglycemia, with long-term current use of insulin ([facility] V24, [facility] V28) (Primary Dx); Primary hypertension; Mixed hyperlipidemia; Gastroesophageal reflux disease without esophagitis; Encounter for diabetic foot exam ([facility] V24, [facility] V28) 06/18/2025 9:45 AM EDT Office Visit Endocrinology [address] [phone] Monserrat Love PA Type 2 diabetes mellitus with hyperglycemia, without long-term current use of insulin ([facility] V24, [facility] V28) (Primary Dx); Stage 3a chronic kidney disease ([facility] V24, [facility] V28); Primary hypertension; Mixed hyperlipidemia from Last 3 Months Immunizations Immunization Administration [...] mellitus type 2, co ntrolled, without complications ([facility] V24, [facility] V28) 04/29/2015 DX:Diabetes mellitus type 2, controlled, without complications ([facility]) Family History Medical History Relation Name Comments No Known Problems Brother Heart attack Father dec at 44 [place] Heart attack Maternal Grandfather heavy s moker [...] 10:30 AM EST Consult Orthopedic Surgery - [place] [address] [phone] Raimundo Jimenez, SUZANNE [address] [address] 10/25/2025 9:40 AM EST Office Visit Endocrinology [address] [phone] Deja Caro PA [address], [place] 11/05/2025 11:45 AM EST Office Visit Adult Medicine [place] [address] [phone] Jacques Guevara MD [address], [place] Health Maintenance Due Date Last Done Comments RSV Immunization Adult Patients (1 - Risk 50-74 years 1-dose series) 01/28/2016 Medicare Annual Wellness Visit 10/23/2022 Social Influencers [...] Screening (Lipid Panel) 05/13/2030 05/13/2025, 05/02/2024, 05/02/2024 DTaP,Tdap,and Td Vaccines Discontinued 08/07/2014, 11/2004 Hepatitis [...] Procedure Name Priority Date/Time Associated Diagnosis Comments EXTERNAL CLINICAL LAB 08/20/2025 EXTERNAL CLINICAL LAB 08/20/2025 POC GLUCOSE Routine 07/24/2025 11:02 AM EDT Type 2 diabetes mellitus with hyperglycemia, with long-term current use of insulin ([facility] V24, [facility] V28) HEMOGLOBIN A1C Routine 07/19/2025 8:44 AM EDT Poorly controlled diabetes mellitus ([facility] V24, [facility] V28) MICROALBUMIN CREATININE URINE RATIO Routine 07/19/2025 8:44 AM EDT Controlled type 2 diabetes mellitus without complication, without long-term current use of insulin ([facility] V24, [facility] V28) Type 2 diabetes mellitus with hyperglycemia, with long-term current use of insulin ([facility] V24, [facility] V28) POC GLUCOSE Routine 06/18/2025 10:00 AM EDT Type 2 diabetes mellitus with hyperglycemia, without long-term current use of insulin ([facility] V24, [facility] V28) BASIC METABOLIC PANEL Routine 05/13/2025 9:08 AM EDT Controlled type 2 diabetes mellitus without complication, without long-term current use of insulin ([facility] V24, [facility] V28) Primary hypertension Stage 3a chronic kidney disease ([facility] V24, [facility] V28) Class 1 obesity with serious comorbidity [...] Recently Relevant to Health Maintenance Results * External clinical lab (08/20/2025) Only the most recent of2 resultswithin the time period is included. Provider [facility] LAB BLOOD ORDERABLES Fin al Result * POC glucose manually resulted (07/24/2025 11:02 [...] LAB CHEMISTRY METHOD 07/19/2025 9:13 PM EDT [facility] Microalb, Ur 8.7 0.0 - 29.0 mg/L LAB CHEMISTRY METHOD 07/19/2025 9:13 PM EDT [facility] Microalb/Creat Ratio 8 <30 mg/g creat LAB CHEMISTRY METHOD 07/19/2025 9:13 PM EDT [facility] Urine Urine specimen obtained by clean catch procedure / Unknown Non-blood Collection / Unknown 07/19/2025 8:44 AM EDT 07/19/2025 8:44 AM EDT Jacques Guevara MD LAB URINE ORDERABLES Final Resul t [facility] [address] [place] [address], * (ABNORMAL) Hemoglobin A1c (07/19/2025 8:44 AM EDT) Hemoglobin A1C 8.4(H) <6.5 % LAB CHEMISTRY METHOD 07/19/2025 12:24 PM EDT [facility] Mean Bld Glu Estim. 194 mg/dL LAB CHEMISTRY METHOD 07/19/2025 12:24 PM EDT [facility] Blood Venous blood specimen / Unknown Venipuncture / Unknown 07/19/2025 8:44 AM EDT 07/19/2025 8:44 AM EDT us Jacques Guevara MD LAB BLOOD ORDERABLES Final Resul t [facility] [address] [place] [address], [place] [phone] * (ABNORMAL) Lipid panel with reflex to direct LDL (05/13/2025 9:08 AM EDT) Cholesterol 133 0 - 200 mg/dL LAB CHEMISTRY METHOD 05/13/2025 1:38 PM EDT [facility] Triglycerides 153(H) 0 - 150 mg/dL LAB CHEMISTRY METHOD 05/13/2025 1:38 PM EDT [facility] HDL 32(L) >=40 mg/dL LAB CHEMISTRY METHOD 05/13/2025 1:38 PM EDT [facility] LDL Calculated 70 0 - 100 mg/dL LAB CHEMISTRY METHOD 05/13/2025 1:38 PM EDT [facility] VLDL Cholesterol Nish 30.6 mg/dL LAB CHEMISTRY METHOD 05/13/2025 1:38 PM EDT [facility] Non HDL Chol. (LDL+VLDL) 101 <145 mg/dL LAB CHEMISTRY METHOD 05/13/2025 1:38 PM EDT [facility] Chol/HDL Ratio 4.2 0.0 - 4.4 LAB CHEMISTRY METHOD 05/13/2025 1:38 PM EDT [facility] Blood Venous blood specimen / Unknown Venipuncture / Unknown 05/13/2025 9:08 AM EDT 05/13/2025 9:08 AM EDT Ashley Quick CERAMIST LAB BLOOD ORDERABLES Final R esult [facility] [address] [place] [address], [place] [phone] * (ABNORMAL) Basic metabolic panel (05/13/2025 9:08 AM EDT) Sodium 138 133 - 145 mmol/L LAB CHEMISTRY METHOD 05/13/2025 1:38 PM EDT [facility] Potassium 3.7 3.5 - 5.5 mmol/L LAB CHEMISTRY METHOD 05/13/2025 1:38 PM [facility] Chloride 102 96 - 110 mmol/L LAB CHEMISTRY METHOD 05/13/2025 1:38 PM [facility] CO2 27 21 - 32 mmol/L LAB CHEMISTRY METHOD 05/13/2025 1:38 PM [facility] Anion Gap 9 3 - 11 LAB CHEMISTRY METHOD 05/13/2025 1:38 PM [facility] Glucose 192(H) 70 - 100 mg/dL LAB CHEMISTRY METHOD 05/13/2025 1:38 PM [facility] BUN 18 5 - 25 mg/dL LAB CHEMISTRY METHOD 05/13/2025 1:38 PM [facility] Creatinine 1.16 0.70 - 1.30 mg/dL LAB CHEMISTRY METHOD 05/13/2025 1:38 PM [facility] eGFR 73 >=60 mL/min/1. 73m2 LAB CHEMISTRY METHOD 05/13/2025 1:38 PM [facility] Comment:Calculation based on the Chronic Kidney Disease Epidemiology Collaboration (CKD-EPI) equation refit without adjustment for race. BUN/Creatinine Ratio 15.5 LAB CHEMISTRY METHOD 05/13/2025 1:38 PM [facility] Calcium 9.3 8.5 - 10.5 mg/dL LAB CHEMISTRY METHOD 05/13/2025 1:38 PM [facility] Blood Venous blood specimen / Unknown Venipuncture / Unknown 05/13/2025 9:08 AM EDT 05/13/2025 9:08 AM EDT us Ashley Quick NP LAB BLOOD ORDERABLES Final R esult [facility] [address] [place] [address], * COLONOSCOPY Anesthesia - MAC; [facility] ENDOSCOPY (04/02/2025 11:18 AM EDT) Anatomical Region Laterality Modality Other 04/02/2025 11:0 2 AM EDT Impressions 04/02/2025 11:21 AM EDT - Preparation of the colon was fair. - Stool in the entire examined colon. - No specimens collected. Recommendation: - Repeat colonoscopy in 1 year for screening purposes and because the bowel preparation was suboptimal. Narrative 04/02/2025 11:21 AM EDT [facility] GI Patient Name: Valentín Vilchis Procedure [...] malignant neoplasm of colon CPT copyright 2020 [employer]. All rights reserved. The codes documented in this report are preliminary and upon adult probation officer review may be revised to meet current compliance requirements. Jonny Dick MD 04/02/2025 11:21:05 AM This report has been signed electronically.Jonny Dick MD Number of Addenda: 0 Note Initiated On: 04/02/2025 11:02 AM Scope In: Scope Out: Endoscopy Department at [facility] - [address] [place] [phone] Procedure Note Jonny Dick MD - 04/02/2025 [facility] GI Patient Name: Valentín Vilchis Procedure [...] for malignantneoplasm of colon CPT copyright 2020 [employer]. All rights reserved. The codes documented in this report are preliminary and upon adult probation officer reviewmay be revised to meet current compliance requirements. Jonny Dick MD 04/02/2025 11:21:05 AM This report has been signed electronically.Jonny Dick MD Number of Addenda: 0 Note Initiated On: 04/02/2025 11:02 AM Scope In: Scope Out: Endoscopy Department at [address] [phone] IMPRESSION: - Preparation of the colon was fair. - Stool in the entire examined colon. - No specimens collected. Recommendation: - Repeat colonoscopy in 1 year for screeningpurposes and because the bowel preparation was suboptimal. Jnony Dick MD GI~PROCEDURE ORDERABLES Fin al Result * Depression Screening (08/02/2024) Pathologist [facility] Depression Screening abstracted Historical Provider HEALTH MAINTENANCE Edited Result - Final * Diabetes Eye Exam (05/28/2024) [facility] Diabetes: Annual Retina Eye Exam abstracted Historical Provider HEALTH MAINTENANCE Final Result * Hepatitis C Screening (08/11/2014) Pathologist [facility] Hepatitis C Screening abstracted Historical Provider HEALTH MAINTENANCE Final Result from Last 3 Months or Most Recently Relevant to Health Maintenance Insurance [employer] MEDICARE ADVANTAGE MEDICAID - [place] Care Teams Inside Meter Tester Relationship Specialty Start Date End Date Jacques Guevara MD [address] [place] [address] PCP - General Internal Medicine 06/02/15
== END 2025-09-04 13:56 | disposition home or self-care (01) ==
LOC: HO.NEURO 13:55
PROVIDERS: PCP Internal Medicine; Visit Provider Psychiatry & Neurology Neurology
DX: E11.42 Type 2 diabetes mellitus with diabetic polyneuropathy (principal)
CPT/HCPCS: 95886; 95911

== ENCOUNTER → 2025-09-04 14:02 | Outpatient (BNV) | payer MEDICARE, MEDICAID, SELFPAY | PROVIDERS: PCP Internal Medicine; Visit Provider Psychiatry & Neurology Neurology | DX: E11.42 Type 2 diabetes mellitus with diabetic polyneuropathy (principal) | CPT/HCPCS: 95886; 95911 ==

== ENCOUNTER → 2025-09-19 18:23 | Outpatient (BNV) | payer MEDICARE, MEDICAID, SELFPAY | PROVIDERS: PCP Internal Medicine; Visit Provider Radiology Diagnostic Radiology | DX: M47.12 Other spondylosis with myelopathy, cervical region (principal); M48.02 Spinal stenosis, cervical region | CPT/HCPCS: 72141 ==

== ENCOUNTER 2025-09-19 18:24 | Outpatient (REF) | payer MEDICARE, MEDICAID, SELFPAY ==
--- OUTSIDE RECORDS SUMMARY | 2025-09-18 10:30 | XMS_ITS | Encounter Summary ---
Author Organization [facility] Address [address] [place] [address] Care Team Providers Care Laboratory Cureman Name Role Phone Jacques Guevara MD Primary Care Provider [phone] Encounter Details Date Type Department Care Team ([facility] st Contact Info) Description 09/18/2025 10:30 AM EST Consult Orthopedic Surgery - [place] [address] [phone] Raimundo Jimenez DPM [address] [address] Controlled type 2 diabetes with neuropathy ([facility] V24, [facility] V28) (Primary Dx); Metatarsalgia of right foot; Arthritis of both feet; Midfoot ulceration, right, with fat layer exposed ([facility] V24, [facility] V28) Social History Tobacco Use Types [...] Progress Notes * Raimundo Jimenez DPM - 09/18/2025 10:30 AM EST Referring MD: Ashley Quick NP Last PCP visit: 07/24/2025 IDENTIFIER: White is a 60 y.o. year old male who presents for consultation. CC: Bilateral foot pain HPI: 60-year-old diabetic male returns office for complaint of ulceration of the right foot Patient states that they have been diabetic for the past few years and has extensive tingling numbness of the feet Patient notes he has been getting patient relates that he has been using the offloading pads and dressing the toe daily of the right foot. Patient denies any recent fever nausea vomit shortness of breath Patient is wearing good supportive shoes at [...] Sharp/dull sensation intact, protective sensation diminished on [place]. Peripheral neuropathy throughout the feet bilaterally ORTHOPEDIC: [...] 1. Controlled type 2 diabetes with neuropathy ([facility] V24, [facility] V28) 2. Metatarsalgia of right foot 3. Arthritis of both feet 4. Midfoot ulceration, right, with fat layer exposed ([facility] V24, [facility] V28) PLAN: Pt was seen and examined, history reviewed. Patient was educated on portance of controlling his sugar in order to allow for proper healing of the foot Patient continues to suffer with swelling and redness to the midfoot from arthritic change. Patientcourage to wear more supportive insole in his shoe Patient was educated that due to his arch height he is having a pressure sore to the plantar aspectof the submetatarsal 1 position. Patient required debridement as described below and was dressed with an offloading pad and DSD. Patient instructed to change his dressing daily. Patient will return in 2 week for site check Open wound selective excisional debridement of devitalized soft tissue, fibrin, epidermis, dermis, thru skin and subcutaneous tissue, first 20 sq cm or less, using sterile sharp dissection #15 scalpel blade of the right foot wound. Pt. deferred anesthesia. . Devitalized tissue was not sent to pathology. Raimundo Jimenez DPM [1] Patient Active Problem [...] hyperglycemia, with long-term current use of insulin ([facility] V24, [facility] V28) [2] No outpatient medications have been marked as taking for the 09/18/25 encounter (Consult) with Raimundo Jimenez DPM. documented in this encounter Plan of Treatment Upcoming Encounters Date Type Department Care Team (Late st Contact Info) Description 10/02/2025 11:00 AM EST Office Visit Orthopedic Surgery - [place] [address] [phone] Raimundo Jimenez DPM [address] [address] 10/25/2025 9:40 AM EST Office Visit Endocrinology [address] [phone] Deja Caro PA [address] [place] [address] 11/05/2025 11:45 AM EST Office Visit Adult Medicine [address] [phone] Jacques Guevara MD [address] [place] [address] documented as of this encounter Visit Diagnoses Diagnosis Controlled type 2 diabetes with neuropathy ([facility] V24, [facility] V28)- Primary Type II or unspecified type diabetes mellitus with neurological manifestations, not stated as uncontrolled Metatarsalgia of right foot Arthritis of both feet Midfoot ulceration, right, with fat layer exposed ([facility] V24, [facility] V28) documented in this encounter Additional Health Concerns Assessment Noted Time PHQ-9 Depression Total Score: 0 07/24/20 11:00 AM EDT documented as of this encounter Care Teams Laboratory Cureman Relationship Specialty Start Date End Date Jacques Guevara MD [address] [place] [address] PCP - General Internal Medicine 06/02/15 documented as of this encounter
--- NOTE | ~2025-09-19 | MR_ITS ---
CLINICAL HISTORY: M47.12 - Other spondylosis with myelopathy, cervical region. Questioned cord compression MR of the cervical spine without contrast. No comparison provided. Findings: There is no significant malalignment. No suspicious bony lesions are seen. There is [id number]-[id number] multilevel degenerative disc disease most pronounced at C5-6. There is prominent multilevel facet disease significantly greater on the left. C2-3: No significant disc bulge or focal protrusion. Prominent bilateral foraminal narrowing. C3-4: Mild disc bulge with mild spinal stenosis. Prominent bilateral foraminal narrowing. C4-5: Mild disc bulge with mild canal narrowing. Severe left and milder right foraminal narrowing. C5-6: Diffuse disc bulge with an associated large right paracentral disc extrusion causing severe spinal stenosis and mass effect on the cervical cord. There is increased signal in the cord at this level. Bilateral foraminal narrowing [id number]. C6-7: Diffuse disc bulge with mild spinal stenosis. C7-T1: Small right paracentral disc protrusion without significant canal narrowing. At T3-4 there are incompletely evaluated hypertrophic changes posterior to the cord likely related to ligamentum flavum calcification causing moderate canal narrowing. Impression: Severe C5-6 spinal stenosis with mass effect on the cervical cord. There is increased signal in the cervical cord at this level that may relate to myelomalacia but is technically indeterminate recommend comparison to previous or follow-up. Multiple additional abnormalities as above. This document has been electronically signed by: Jori Cortes MD on 09/19/2025 19:50:01
--- OUTSIDE RECORDS SUMMARY | 2025-09-19 18:55 | XMS_ITS | Clinical Summary ---
Author Organization [address] Address [address] [place] [phone] Phone Care Team Providers Care Internet Architect Name Role Phone Jacques Guevara MD Primary Care Provider [phone] Allergies Active Allergy Reactions Criticality Noted Date [...] hyperglycemia, with long-term current use of insulin ([facility] V24, [facility] V28) TAKE 1 TABLET BY MOUTH THREE [...] hyperglycemia, with long-term current use of insulin ([facility] V24, [facility] V28) TAKE 1 TABLET BY MOUTH EVERY DAY 90 tablet 1 5 Active semaglutide (OZEMPIC) 1 mg/dose (4 mg/3 mL) injection penIndications: Type 2 diabetes mellitus with hyperglycemia, without long-term current use of insulin ([facility] V24, [facility] V28) Inject 1 mg under the skin every 7 (seven) days. 3 mL 5 5 Active blood-glucose meter miscIndications :Type 2 diabetes mellitus with hyperglycemia, with long-term current use of insulin ([facility] V24, [facility] V28) Use daily or as directed for monitoring of diabetes. 1 each 5 Active glucose blood test stripIndication s:Type 2 diabetes mellitus with hyperglycemia, with long-term current use of insulin ([facility] V24, [facility] V28) Check blood glucose daily 100 strip 5 5 Active lancets lancetsIndicati ons:Type 2 diabetes mellitus with hyperglycemia, with long-term current use of insulin ([facility] V24, [facility] V28) Check blood sugar 1-2 times a [...] hyperglycemia, with long-term current use of insulin ([facility] V24, [facility] V28) 08/24/2024 Abnormal chest x-ray 03/02/2023 Acne rosacea 11/10/2020 Chronic kidney disease, stag e 3, mod decreased GFR ([facility] V24, [facility] V28) 11/02/2016 Assessment & Plan (11/25/2024 11:00 PM EST): BMP order to evaluated renal function Orders: Basic metabolic panel; Future Plantar fasciitis 10/28/2015 Bilateral low back pain without sciatica 015 Diabetes mellitus type 2, co ntrolled, without complications ([facility] V24, [facility] V28) 04/29/2015 Assessment & Plan (11/25/2024 11:00 [...] Encounters Date Type Department Care Team Description 09/18/2025 10:30 AM EST Consult Orthopedic Surgery - [address] [phone] Raimundo Jimenez, SUZANNE Controlled type 2 diabetes with neuropathy (CMS/HCC V24, CMS/HCC V28) (Primary Dx); Metatarsalgia of right foot; Arthritis of both feet; Midfoot ulceration, right, with fat layer exposed (CMS/HCC V24, [facility] V28) 09/04/2025 10:45 AM EDT Consult Orthopedic Surgery - [address] [phone] Raimundo Jimenez DPM Controlled type 2 diabetes with neuropathy ([facility] V24, [facility] V28) (Primary Dx); Metatarsalgia of right foot; Arthritis of both feet; Dermatophytosis, nail; Midfoot ulceration, right, with fat layer exposed ([facility] V24, [facility] V28) 08/20/2025 Telephone Adult Medicine [address] [phone] [place] 08/14/2025 Telephone Adult Medicine [address] [phone] Jacques Guevara MD 07/24/2025 11:00 AM EDT Office Visit Adult Medicine [address] [phone] Ashley Quick, TUSHAR Type 2 diabetes mellitus with hyperglycemia, with long-term current use of insulin ([facility] V24, [place] [id number]) (Primary Dx); Primary hypertension; Mixed hyperlipidemia; Gastroesophageal reflux disease without esophagitis; Encounter for diabetic foot exam ([facility] V24, [place] [id number]) from Last 3 Months Immunizations Immunization Administration [...] mellitus type 2, co ntrolled, without complications ([facility] V24, [facility] V28) 04/29/2015 DX:Diabetes mellitus type 2, controlled, without complications ([facility]) Family History Medical History Relation Name Comments No Known Problems Brother Heart attack Father dec at 44 [place] Heart attack Maternal Grandfather heavy s moker [...] AM EST Office Visit Orthopedic Surgery - [place] [address] [phone] Raimundo Jimenez, SUZANNE [address] [address] 10/25/2025 9:40 AM EST Office Visit Endocrinology [address] [phone] Deja Caro PA [address] [place], [place] 11/05/2025 11:45 AM EST Office Visit [facility] - [address] [phone] Jacques Guevara MD [address] [place], [place] Health Maintenance Due Date Last Done [...] hyperglycemia, with long-term current use of insulin ([facility] V24, [facility] V28) HEMOGLOBIN A1C Routine 07/19/2025 8:44 AM EDT Poorly controlled diabetes mellitus ([facility] V24, [facility] V28) MICROALBUMIN CREATININE URINE RATIO Routine 07/19/2025 8:44 AM EDT Controlled type 2 diabetes mellitus without complication, without long-term current use of insulin ([facility] V24, [facility] V28) Type 2 diabetes mellitus with hyperglycemia, with long-term current use of insulin ([facility] V24, [facility] V28) BASIC METABOLIC PANEL Routine 05/13/2025 9:08 AM EDT Controlled type 2 diabetes mellitus without complication, without long-term current use of insulin ([facility] V24, [facility] V28) Primary hypertension Stage 3a chronic kidney disease ([facility] V24, [facility] V28) Class 1 obesity with serious comorbidity [...] glucose manually resulted (07/24/2025 11:02 AM EDT) Glucose POC 179 mg/dL Blood Capillary blood specimen / Unknown 07/24/2025 11:02 AM EDT Ashley Quick NP POINT OF CARE TEST ENTER/DAVID T ORDERABLES Final Result * Microalbumin creatinine urine ratio (07/19/2025 8:44 AM EDT) Creatinine, Urine 106.0 mg/dL LAB CHEMISTRY METHOD 07/19/2025 9:13 PM EDT [facility] Microalb, Ur 8.7 0.0 - 29.0 mg/L LAB CHEMISTRY METHOD 07/19/2025 9:13 PM EDT [facility] Microalb/Creat Ratio 8 <30 mg/g creat LAB CHEMISTRY METHOD 07/19/2025 9:13 PM EDT [facility] Urine Urine specimen obtained by clean catch procedure / Unknown Non-blood Collection / Unknown 07/19/2025 8:44 AM EDT 07/19/2025 8:44 AM EDT us Jcaques Guevara MD LAB URINE ORDERABLES Final Resul t Performing Organization Address [facility]/ZIP Co de Phone Number [facility] [address] [place] [address], [place] [phone] * (ABNORMAL) Hemoglobin A1c (07/19/2025 8:44 AM EDT) Hemoglobin A1C 8.4(H) <6.5 % LAB CHEMISTRY METHOD 07/19/2025 12:24 PM EDT [facility] Mean Bld Glu Estim. 194 mg/dL LAB CHEMISTRY METHOD 07/19/2025 12:24 PM EDT [facility] Blood Venous blood specimen / Unknown Venipuncture / Unknown 07/19/2025 8:44 AM EDT 07/19/2025 8:44 AM EDT us Jacques Guevara MD LAB BLOOD ORDERABLES Final Resul t Performing Organization Address City/[facility]/ZIP Co de Phone Number [facility] [address] [place] [address], [place] [phone] * (ABNORMAL) Lipid panel with reflex to direct LDL (05/13/2025 9:08 AM EDT) Cholesterol 133 0 - 200 mg/dL LAB CHEMISTRY METHOD 05/13/2025 1:38 PM EDT [facility] Triglycerides 153(H) 0 - 150 mg/dL LAB CHEMISTRY METHOD 05/13/2025 1:38 PM EDT [facility] HDL 32(L) >=40 mg/dL LAB CHEMISTRY METHOD 05/13/2025 1:38 PM EDT [facility] LDL Calculated 70 0 - 100 mg/dL LAB CHEMISTRY METHOD 05/13/2025 1:38 PM EDT [facility] VLDL Cholesterol Nish 30.6 mg/dL LAB CHEMISTRY METHOD 05/13/2025 1:38 PM EDT [facility] Non HDL Chol. (LDL+VLDL) 101 <145 mg/dL LAB CHEMISTRY METHOD 05/13/2025 1:38 PM EDT [facility] Chol/HDL Ratio 4.2 0.0 - 4.4 LAB CHEMISTRY METHOD 05/13/2025 1:38 PM EDT [facility] Blood Venous blood specimen / Unknown Venipuncture / Unknown 05/13/2025 9:08 AM EDT 05/13/2025 9:08 AM EDT Ashley Quick WASH TEST CHECKER LAB BLOOD ORDERABLES Final R esult [facility] [address] [place] [address], * (ABNORMAL) Basic metabolic panel (05/13/2025 9:08 AM EDT) Sodium 138 133 - 145 mmol/L LAB CHEMISTRY METHOD 05/13/2025 1:38 PM EDT [facility] Potassium 3.7 3.5 - 5.5 mmol/L LAB CHEMISTRY METHOD 05/13/2025 1:38 PM EDT [facility] Chloride 102 96 - 110 mmol/L LAB CHEMISTRY METHOD 05/13/2025 1:38 PM EDT [facility] CO2 27 21 - 32 mmol/L LAB CHEMISTRY METHOD 05/13/2025 1:38 PM EDT [facility] Anion Gap 9 3 - 11 LAB CHEMISTRY METHOD 05/13/2025 1:38 PM EDT [facility] Glucose 192(H) 70 - 100 mg/dL LAB CHEMISTRY METHOD 05/13/2025 1:38 PM EDT [facility] BUN 18 5 - 25 mg/dL LAB CHEMISTRY METHOD 05/13/2025 1:38 PM EDT [facility] Creatinine 1.16 0.70 - 1.30 mg/dL LAB CHEMISTRY METHOD 05/13/2025 1:38 PM EDT [facility] eGFR 73 >=60 mL/min/1. 73m2 LAB CHEMISTRY METHOD 05/13/2025 1:38 PM EDT [facility] Comment:Calculation based on the Chronic Kidney Disease Epidemiology Collaboration (CKD-EPI) equation refit without adjustment for race. BUN/Creatinine Ratio 15.5 LAB CHEMISTRY METHOD 05/13/2025 1:38 PM EDT [facility] Calcium 9.3 8.5 - 10.5 mg/dL LAB CHEMISTRY METHOD 05/13/2025 1:38 PM EDT [facility] Blood Venous blood specimen / Unknown Venipuncture / Unknown 05/13/2025 9:08 AM EDT 05/13/2025 9:08 AM EDT us Ashley Quick WASH TEST CHECKER LAB BLOOD ORDERABLES Final R esult [facility] [address] [place] [address], * COLONOSCOPY Anesthesia - MAC; [facility] ENDOSCOPY (04/02/2025 11:18 AM EDT) Anatomical Region Laterality Modality Other 04/02/2025 11:0 2 AM EDT Impressions 04/02/2025 11:21 AM EDT - Preparation of the colon was fair. - Stool in the entire examined colon. - No specimens collected. Recommendation: - Repeat colonoscopy in 1 year for screening purposes and because the bowel preparation was suboptimal. Narrative 04/02/2025 11:21 AM EDT [facility] GI Patient Name: Valentín Vilchis Procedure [...] malignant neoplasm of colon CPT copyright 2020 [employer]. All rights reserved. The codes documented in this report are preliminary and upon bobbin cleaner hand review may be revised to meet current compliance requirements. Jonny Dick MD 04/02/2025 11:21:05 AM This report has been signed electronically.Jonny Dick MD Number of Addenda: 0 Note Initiated On: 04/02/2025 11:02 AM Scope In: Scope Out: Endoscopy Department at [address] [phone] Procedure Note Jonny Dick MD - 04/02/2025 [facility] GI Patient Name: Valentín Vilchis Procedure [...] for malignantneoplasm of colon CPT copyright 2020 [employer]. All rights reserved. The codes documented in this report are preliminary and upon bobbin cleaner hand reviewmay be revised to meet current compliance requirements. Jonny Dick MD 04/02/2025 11:21:05 AM This report has been signed electronically.Jonny Dick MD Number of Addenda: 0 Note Initiated On: 04/02/2025 11:02 AM Scope In: Scope Out: Endoscopy Department at [facility] - [address] [place] [phone] IMPRESSION: - Preparation of the colon was fair. - Stool in the entire examined colon. - No specimens collected. Recommendation: - Repeat colonoscopy in 1 year for screeningpurposes and because the bowel preparation was suboptimal. Jonny Dick MD GI~PROCEDURE ORDERABLES Fin al Result * Depression Screening (08/02/2024) [facility] Depression Screening abstracted Historical Provider HEALTH MAINTENANCE Edited Result - Final * Diabetes Eye Exam (05/28/2024) [facility] Diabetes: Annual Retina Eye Exam abstracted Historical Provider HEALTH MAINTENANCE Final Result * Hepatitis C Screening (08/11/2014) Pathologist [facility] Hepatitis C Screening abstracted [facility] Provider HEALTH MAINTENANCE Final Result from Last 3 Months or Most Recently Relevant to Health Maintenance Insurance [employer] MED[employer]ARE [employer]AGE MEDICAID - [place] Care Teams Internet Architect Relationship Specialty Start Date End Date Jacques Guevara MD [address] [place] [address] PCP - General Internal Medicine 06/02/15
== END 2025-09-19 18:25 | disposition home or self-care (01) ==
LOC: HO.MRI 18:24
PROVIDERS: PCP Internal Medicine; Visit Provider Psychiatry & Neurology Neurology
DX: M47.12 Other spondylosis with myelopathy, cervical region (principal)
CPT/HCPCS: 72141